=== PATIENT | male | born 1990 | race Caucasian/White ===

== ENCOUNTER 2019-05-14 17:17 | Inpatient (IN) | payer OTHER ==
[2019-05-14 18:36] VITALS: BMI 20.9
--- NOTE | 2019-05-14 21:05 | HP ---
"COWS - Scale Resting Pulse: 1= VA 81-100 Sweatin=Flushed/Facial Moisture Restless Observation: 1= Difficult to Sit Still Pupil Size: 0= Normal to Room Light (Puplis = 1 mm) Bone or Joint Aches: 0= None Runny Nose/ Eye Tearin= Nasal Congestion GI Upset > 30mins: 3= Vomiting/Diarrhea (w/o diarrhea) Tremor Observation: 4= Gross Tremor/Twitching Yawning Observation: 0= None Anxiety or Irritability: 1=Feels Anxious/Irritable Goose Flesh Skin: 0=Smooth Skin COWS Score: 13 CIWA Score - Admission Criteria OASAS Guidelines: Admission for Medically Managed Detox: Requires at least one of the followin. CIWA greater than 12 2. Seizures within the past 24 hours 3. Delirium tremens within the past 24 hours 4. Hallucinations within the past 24 hours 5. Acute intervention needed for co occurring medical disorder 6. Acute intervention needed for co occurring psychiatric disorder 7. Severe withdrawal that cannot be handled at a lower level of care (continued vomiting, continued diarrhea, abnormal vital signs) requiring intravenous medication and/or fluids 8. Admission ROS [facility] Chief Complaint: Here to get clean and get life better. Allergies/Adverse Reactions: Allergies Allergy/AdvReac Type Severity Reaction Status Date / Time No Known Allergies Allergy Verified 05/14/19 18:31 History of Present Illness: 28 yo presents w/ heroin withdrawal symptoms seeking detox. Referred for detox by the needle exchange program. UTox: + MOP/THC Denies overdose or seizure. Heroin use began at age 19. Currently 2-3 bags/day x 1 yr. IVDU. Has a Narcan kit at home. Denies marijuana use. Nicotine use began at age 18. Smokes 6 cig/day. Denies alcohol use. PMHx: Denies MHHx: Insomnia. Depression. Denies thoughts of harming self or others. SHx: Homeless. Unemployed. Has COURT on Friday 05/19 Search Terms: Marty Linda, 1990 Search Date: 05/14/2019 09:04:17 PM The Drug Utilization Report below displays all of the controlled substance prescriptions, if any, that your patient has filled in the last twelve months. The information displayed on this report is compiled from pharmacy submissions to the Department, and accurately reflects the information as submitted by the pharmacies. This report was requested by: Nancy Munson | Reference #: [id number] There are no results for the search terms that you entered. Exam Limitations: No Limitations - Ebola screening Have you traveled outside of the country in the last 21 days: No (N) Have you had contact with anyone from an Ebola affected area: No Have you been sick,other than usual withdrawal symptoms: No Do you have a fever: No - Review of Systems Constitutional: Diaphoresis, Changes in sleep (Difficulty falling asleep) EENT: reports: Nose Congestion Respiratory: reports: No Symptoms reported Cardiac: reports: No Symptoms Reported GI: reports: Vomiting, Abdominal cramping : reports: No Symptoms Reported Musculoskeletal: reports: No Symptoms Reported Integumentary: reports: No Symptoms Reported Neuro: reports: Tremors Endocrine: reports: Increased Thirst Hematology: reports: No Symptoms Reported Psychiatric: reports: Judgement Intact, Agitated, Anxious, Depressed (Denies thoughts of harming self or others), other (Unsure of exact date - knows monthand year) Patient History - PPD History Previous Implant?: Yes Documented Results: Negative w/o proof PPD to be Administered?: Yes - Smoking Cessation Smoking history: Current every day smoker Have you smoked in the past 12 months: Yes Aproximately how many cigarettes per day: 6 Hx Chewing Tobacco Use: No Initiated information on smoking cessation: Yes 'Breaking Loose' booklet given: 05/14/19 - Substance & Tx. History Hx Alcohol Use: No Hx Substance Use: Yes Substance Use Type: Heroin Hx Substance Use Treatment: Yes (detox, rehab) - Substances abused Heroin Substance route: Injection Frequency: Daily Amount used: 2bags Age of first use: 28 Date of last use: 05/13/19 Admission Physical Exam BHS - Vital Signs Vital Signs: Vital Signs - 24 hr 05/14/19 18:32 Temperature 97.9 F Pulse Rate 88 Respiratory 16 Rate Blood Pressure 146/96 - Physical General Appearance: Yes: Nourished, Moderate Distress, Tremorous, Sweating ( Increased facial mositure) HEENTM: Yes: EOMI, Hearing grossly Normal, Normocephalic, Normal Voice, ANNE-MARIE ( Pupils = 1 mm), Pharynx Normal, Other (Thickened saliva) Respiratory: Yes: Lungs Clear (Pulse ox = 98 %), Normal Breath Sounds, No Respiratory Distress Neck: Yes: No masses,lesions,Nodules, Supple Breast: Yes: Breast Exam Deferred Cardiology: Yes: Regular Rhythm, Regular Rate, S1, S2, Murmur Abdominal: Yes: Non Tender, Flat, Soft, Increased Bowel Sounds Genitourinary: Yes: Within Normal Limits Back: Yes: Normal Inspection Musculoskeletal: Yes: full range of Motion, Gait Steady Extremities: Yes: Normal Capillary Refill, Normal Range of Motion, Tremors 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 No increased warmth or tenderness at sites.) - Diagnostic (1) Opioid dependence with withdrawal Current Visit: Yes Status: Acute (2) Nicotine dependence, unspecified, uncomplicated Current Visit: Yes Status: Chronic Qualifiers: Nicotine product type: cigarettes Qualified Code(s): F17.210 - Nicotine dependence, cigarettes, uncomplicated (3) Dehydration Current Visit: Yes Status: Acute (4) Murmur, cardiac Current Visit: Yes Status: Acute (5) IVDU (intravenous drug user) Current Visit: Yes Status: Chronic Cleared for Admission S - Detox or Rehab [facility] Level of Care: Medically Managed Detox Regimen/Protocol: Methadone Claeared for Rehab Admission: No Breathalyzer - Breathalyzer Breathalyzer: 0 Urine Drug Screen - Test Device Lot number: [id number] Expiration date: 11/18/20 - Control Is test valid?: Yes - Results Drug screen NEGATIVE: No Urine drug screen results: THC-Marijuana, MOP-Opiates Inpatient Rehab Admission - Rehab Decision to Admit Inpatient rehab admission?: No"
[2019-05-14] MEDS ORDERED: BISMUTH SUBSALICYLATE 524 MG/30 ML UD PO PRN (21:20)
[2019-05-14] MEDS ORDERED: MENTHOL/PHENOL 1 EACH UD MM PRN (21:20)
[2019-05-14] MEDS ORDERED: IBUPROFEN 400 MG TABLET (FP) PO PRN (21:20)
[2019-05-14] MEDS ORDERED: MAGNESIUM HYDROX 2400MG/30ML ORAL SUSPENSION 30 ML CUP PO PRN (21:20)
[2019-05-14] MEDS ORDERED: NICOTINE POLACRILEX 2 MG GUM BUC PRN (21:20)
[2019-05-14] MEDS ORDERED: MAG HYDROX/AL HYDROX/SIMETH 30 ML UNIT-DOSE CUP PO PRN (21:20)
[2019-05-14] MEDS ORDERED: cloNIDine HCL 0.1 MG TABLET PO PRN (21:20)
[2019-05-14] MEDS ORDERED: MELATONIN 5 MG TABLETS PO PRN (21:20)
[2019-05-14] MEDS ORDERED: ACETAMINOPHEN 325 MG TABLET (FP) PO PRN ×2 (21:20)
[2019-05-14] MEDS ORDERED: MAGNESIUM CITRATE 300 ML BOTTLE PO PRN (21:20)
[2019-05-14] MEDS ORDERED: TRIMETHOBENZAMIDE HCL 200MG/2ML INJ IM PRN (21:24)
[2019-05-14] MEDS: THIAMINE HCL 100 MG TABLET (FP) PO SCH (22:29)
[2019-05-14] MEDS ORDERED: METHADONE HCL 10 MG TABLET (FOR DETOX USE ONLY) PO ONE (23:00)
[2019-05-14] MEDS ORDERED: METHADONE HCL 5 MG TABLET (FOR DETOX USE ONLY) PO ONE (23:00)
[2019-05-15] MEDS ORDERED: METHADONE HCL 5 MG TABLET (FOR DETOX USE ONLY) PO ONE (10:00)
--- NOTE | 2019-05-15 10:37 | EKG ---
Test Reason : Blood Pressure : / mmHG Vent. Rate : 070 BPM Atrial Rate : 070 BPM P-R Int : 116 ms QRS Dur : 088 ms QT Int : 398 ms P-R-T Axes : 065 076 043 degrees QTc Int : 429 ms NORMAL SINUS RHYTHM WITH SINUS ARRHYTHMIA NONSPECIFIC T WAVE ABNORMALITY NO PREVIOUS ECGS AVAILABLE Confirmed by JANE STAUFFER MD ([id number]) on 05/15/2019 10:37:07 AM Referred By: Aidan Jackson Confirmed By:JANE STAUFFER MD
[2019-05-15] MEDS: PRENATAL VITAMINS W/ FOLIC ACID TABLET (FP) PO SCH (10:45)
[2019-05-15] MEDS: NICOTINE 14 MG/24 HOURS TOPICAL PATCH TD SCH (10:45)
[2019-05-15 11:17] LABS: HEMATOCRIT 42.2 % (35.4-49); MCH 27.8 pg (25.7-33.7); MCHC 33.1 g/dl (32.0-35.9); MEAN CELL VOLUME 84.1 fl (80-96); MEAN PLT VOLUME 10.1 fl (7.5-11.1); PLATELET COUNT 183 K/MM3 (134-434); RBC 5.02 M/mm3 (4.00-5.60); RDW 15.2 % (11.9-15.9); WHITE BLOOD COUNT 6.2 K/mm3 (4.0-10.0)
[2019-05-15 11:38] LABS: ALBUMIN 3.7 g/dl (3.4-5.0); BILIRUBIN,TOTAL 0.5 mg/dL (0.2-1); BLOOD UREA NITROGEN 7.4 mg/dL (7-18); CREATININE 0.8 mg/dL (0.55-1.3); POTASSIUM 3.9 mmol/L (3.5-5.1); TOT PROT 6.4 g/dl (6.4-8.2)
[2019-05-15] MEDS: TOLNAFTATE 1% CREAM 15 GM TUBE TP SCH ×2 (15:11→23:55)
--- NOTE | 2019-05-15 16:51 | PN ---
BHS COWS - Scale Resting Pulse: 2= NV 101-120 Sweatin= Chills/Flushing Restless Observation: 1= Difficult to Sit Still Pupil Size: 0= Normal to Room Light Bone or Joint Aches: 0= None Runny Nose/ Eye Tearin= Nasal Congestion GI Upset > 30mins: 0= None Tremor Observation of Outstretched Hands: 0= None Yawning Observation: 1= 1-2x During Session Anxiety or Irritability: 2=Irritable/Anxious Goose Flesh Skin: 3=Piloerection COWS Score: 11 BHS Progress Note (SOAP) Subjective: Chills, Anxious, Interrupted Sleep. Objective: PATIENT A & O X 3, OBSERVED AMBULATING ON DETOX UNIT UNASSISTED. IN NO ACUTE DISTRESS. 05/15/19 16:48 Vital Signs Temperature 98.2 F 05/15/19 10:00 Pulse Rate 101 H 05/15/19 10:00 Respiratory Rate 19 05/15/19 10:00 Blood Pressure 130/73 05/15/19 10:00 O2 Sat by Pulse Oximetry (%) Laboratory Tests 05/15/19 05/15/19 08:00 08:00 WBC 6.2 RBC 5.02 Hgb 14.0 Hct 42.2 MCV 84.1 MCH 27.8 MCHC 33.1 RDW 15.2 Plt Count 183 MPV 10.1 Sodium 141 Potassium 3.9 Chloride 107 Carbon Dioxide 26 Anion Gap 8 BUN 7.4 Creatinine 0.8 Est GFR (CKD-EPI)AfAm 142.89 Est GFR (CKD-EPI)NonAf 123.29 Random Glucose 82 Calcium 9.0 Total Bilirubin 0.5 AST 14 L ALT 34 Alkaline Phosphatase 73 Total Protein 6.4 Albumin 3.7 LABS NOTED. DETOX ADMISSION RPR RESULT PENDING. 05/15/19 16:50 Assessment: 05/15/19 16:49 WITHDRAWAL SYMPTOMS. Plan: CONTINUE DETOX.
[2019-05-15] MEDS: METHOCARBAMOL 500 MG TABLET PO PRN (17:15)
[2019-05-15] MEDS ORDERED: hydrOXYzine PAMOATE 50 MG CAPSULE (FP) PO ONE (20:12)
[2019-05-15] MEDS: THIAMINE HCL 100 MG TABLET (FP) PO SCH (22:36)
[2019-05-16] MEDS: METHOCARBAMOL 500 MG TABLET PO PRN (05:41)
[2019-05-16] MEDS: TOLNAFTATE 1% CREAM 15 GM TUBE TP SCH (09:47)
[2019-05-16] MEDS: NICOTINE 14 MG/24 HOURS TOPICAL PATCH TD SCH (09:47)
[2019-05-16] MEDS: PRENATAL VITAMINS W/ FOLIC ACID TABLET (FP) PO SCH (09:48)
[2019-05-16] MEDS ORDERED: METHADONE HCL 10 MG TABLET (FOR DETOX USE ONLY) PO ONE (10:00)
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
[2019-05-16] MEDS ORDERED: hydrOXYzine PAMOATE 50 MG CAPSULE (FP) PO PRN (11:23)
[2019-05-16 14:34] VITALS: BP 126/74; PULSE 88; TEMP 97.8
--- NOTE | 2019-05-16 16:02 | DS ---
[facility] Detox Discharge Summary Admission Date: 05/14/19 Discharge Date: 05/16/19 - History Present History: Opioid Dependence Additional Comments: Patient has been agitated since this morning. Patient was loud and demanding to have his morning medication right away instead of waiting on the scheduled time. Patient later came in the hallway and approached filing writer, using profanity and demanding that filing writer go inside the medication room and give him his medication right away. Patient was agitated and loud as he yell at filing writer. Mall staff on unit was able to intervene and quickly de-escalate the situation and have patient returned to his room. Patient later started banging furniture and being agitated on the unit as per assigned RN and refused to follow unit rules or listen to staff. Patient administratively discharged. Patient left in stable condition and instructed to call [phone] if sick or withdrawal sxs and to see his PCP within 3 days. Pertinent Past History: Insomnia Depression Nicotine dependence Opioid dependence - Physical Exam Results Vital Signs: Vital Signs Temperature 97.8 F 05/16/19 14:33 Pulse Rate 88 05/16/19 14:33 Respiratory Rate 17 05/16/19 14:33 Blood Pressure 126/74 05/16/19 14:33 O2 Sat by Pulse Oximetry (%) Pertinent Admission Physical Exam Findings: Withdrawal sxs Laboratory Tests 05/15/19 05/15/19 05/15/19 08:00 08:00 08:00 WBC 6.2 RBC 5.02 Hgb 14.0 Hct 42.2 MCV 84.1 MCH 27.8 MCHC 33.1 RDW 15.2 Plt Count 183 MPV 10.1 Sodium 141 Potassium 3.9 Chloride 107 Carbon Dioxide 26 Anion Gap 8 BUN 7.4 Creatinine 0.8 Est GFR (CKD-EPI)AfAm 142.89 Est GFR (CKD-EPI)NonAf 123.29 Random Glucose 82 Calcium 9.0 Total Bilirubin 0.5 AST 14 L ALT 34 Alkaline Phosphatase 73 Total Protein 6.4 Albumin 3.7 RPR Titer Nonreactive Labs reviewed - Medication Discharge Medications: Ambulatory Orders NK [No Known Home Medication] 05/14/19 - Diagnosis (1) Insomnia Status: Chronic (2) Depression Status: Chronic (3) Opioid dependence with withdrawal Status: Acute (4) Nicotine dependence, unspecified, uncomplicated Status: Chronic Qualifiers: Nicotine product type: cigarettes Qualified Code(s): F17.210 - Nicotine dependence, cigarettes, uncomplicated - AMA Did Patient Leave Against Medical Advice: No (Administratively discharged due to inappropriate behavior)
[2019-05-16] MEDS ORDERED: QUEtiapine FUMARATE 100 MG TABLET (FP) PO SCH (22:00)
[2019-05-17] MEDS ORDERED: METHADONE HCL 10 MG TABLET (FOR DETOX USE ONLY) PO ONE (10:00)
[2019-05-18] MEDS ORDERED: METHADONE HCL 5 MG TABLET (FOR DETOX USE ONLY) PO ONE (06:00)
== END 2019-05-16 13:39 | disposition left against medical advice (07) | DRG 770 ==
LOC: YASAS 17:17 → Y6N 21:36
PROVIDERS: ADMIT Allergy & Immunology; ATTEND Allergy & Immunology
PROC: HZ2ZZZZ Detoxification Services for Substance Abuse Treatment (ICD-10-PCS; principal; 2019-05-14)
DX: F11.23 Opioid dependence with withdrawal (principal); F17.210 Nicotine dependence, cigarettes, uncomplicated; F31.9 Bipolar disorder, unspecified; F39 Unspecified mood [affective] disorder; F90.9 Attention-deficit hyperactivity disorder, unspecified type; F19.24 Other psychoactive substance dependence with psychoactive substance-induced mood disorder; F19.282 Other psychoactive substance dependence with psychoactive substance-induced sleep disorder; G47.00 Insomnia, unspecified; R01.1 Cardiac murmur, unspecified; Z56.0 Unemployment, unspecified; Z59.0 Homelessness
CPT/HCPCS: 36415; 80053; 85027; 86593; 93005; 93010; J0735